=== PATIENT | male | born 1990 | race African-American/Black ===

== ENCOUNTER 2018-08-19 11:16 | Emergency (ER) | payer OTHER ==
[2018-08-19 11:23] VITALS: BP 133/74; PULSE 78; TEMP 98.1; BMI 25.7
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
== END 2018-08-19 12:06 | disposition home or self-care (01) ==
LOC: JERFT 11:16
DX: S46.812A Strain of other muscles, fascia and tendons at shoulder and upper arm level, left arm, initial encounter (principal); Y04.0XXA Assault by unarmed brawl or fight, initial encounter; Y93.89 Activity, other specified; Y92.89 Other specified places as the place of occurrence of the external cause; Y99.8 Other external cause status
CPT/HCPCS: 99281-25

== ENCOUNTER 2021-09-06 22:39 | Emergency (ER) | payer OTHER ==
[2021-09-06 22:45] VITALS: BP 127/86; PULSE 86; TEMP 98.6; BMI 26.7
[2021-09-07 06:28] LABS: HIV INTERPRETATION NEGATIVE (NEGATIVE)
[2021-09-07 08:48] LABS: SYPHILIS W/ RPR CONF NON-REACTIVE (NONREACTIVE)
== END 2021-09-06 23:54 | disposition home or self-care (01) ==
LOC: JERFT 22:39
DX: Z20.2 Contact with and (suspected) exposure to infections with a predominantly sexual mode of transmission (principal)
CPT/HCPCS: 36415; 86780; 87389; 87491; 87522; 87591; 99283-25

== ENCOUNTER 2024-08-18 10:52 | Emergency (ER) | payer OTHER ==
[2024-08-18 11:02] VITALS: BP 99/57; PULSE 84; RESP 20; TEMP 97.8; BMI 24.9
[2024-08-18 13:49] LABS: HCV DIAGNOSTIC IN-HOUSE W/RFLX NON-REACTIVE (NONREACTIVE); HIV INTERPRETATION NEGATIVE (NEGATIVE)
== END 2024-08-18 12:20 | disposition home or self-care (01) ==
LOC: JERFT 10:52
DX: R21 Rash and other nonspecific skin eruption (principal)
CPT/HCPCS: 36415; 86803; 87389; 99283-25